=== PATIENT | female | born 1995 | race Caucasian/White ===

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

== ENCOUNTER 2017-06-28 11:38 | Emergency (ER) | payer OTHER ==
[~2017-06-28] VITALS: Ht 154.9 cm; Wt 53.1 kg
[~2017-06-28 11:38] MED LIST: ALBU18002 INH; BCPILLS PO; BENZ100C84 PO; BXN500 PO
[2017-06-28 11:40] VITALS: TEMP 36.9; Ht 154.9 cm; Wt 53.1 kg
--- NOTE | 2017-06-28 13:09 | DIAGNOSTIC IMAGING REPORT ---
CT OF THE CERVICAL SPINE CLINICAL HISTORY: Neck pain status post trauma. COMPARISON STUDY: No previous studies for comparison. CT DOSE: TECHNIQUE: CT scan of the cervical spine was performed from the skull base to the thoracic inlet. Images are reviewed in the axial, sagittal, and coronal planes. IV contrast was not administered for this examination. A dose lowering technique was utilized adhering to the principles of ALARA. FINDINGS: The visualized portions of the lung apices reveal no evidence of pneumothorax. The prevertebral soft tissues are normal. No fractures or subluxations are visualized. There is a slight reversal of the normal cervical lordosis IMPRESSION: 1. Reversal of the normal cervical lordosis possibly secondary to muscle spasm 2. No fractures or subluxations identified Electronically signed by: Varghese Trejo M.D. 06/28/2017 1:08 PM Dictated Date/Time: 06/28/2017 1:06 PM
--- NOTE | 2017-06-28 13:10 | DIAGNOSTIC IMAGING REPORT ---
HEAD WITHOUT CONTRAST (CT) CLINICAL HISTORY: 21 years-old Female presenting with head injury. TECHNIQUE: Multidetector CT imaging of the head was performed without the use of intravenous contrast. IV contrast: None. A dose lowering technique was used consistent with the principles of ALARA (as low as reasonably achievable). COMPARISON: None. CT DOSE (mGy.cm): The estimated cumulative dose is 937.97 mGy.cm. FINDINGS: Gun Stocker topogram: Unremarkable. Ventricles and sulci normal in size. Brain parenchyma normal in appearance with preserved harman-white differentiation. No mass effect or midline shift. No hemorrhage or acute territorial infarct. No extra-axial fluid collection. Paranasal sinuses and mastoid air cells clear. Calvarium intact. Minimal infiltration and swelling of the subcutaneous tissue in the frontal region. No subjacent osseous injury. IMPRESSION: 1. No acute intracranial abnormality. 2. Minimal superficial contusion in the right frontal subcutaneous tissue. No subjacent osseous injury. Electronically signed by: Alo Abbasi M.D. 06/28/2017 1:09 PM Dictated Date/Time: 06/28/2017 1:07 PM
--- NOTE | 2017-06-28 13:29 | EMERGENCY ROOM VISIT NOTE ---
ED Visit Note First contact with patient: 11:59 CHIEF COMPLAINT: Head injury HISTORY OF PRESENT ILLNESS: This 21-year-old female patient presented to the emergency department, ambulatory, approximately 9 hours after receiving a head injury while performing a [employer] march for [employer]. The patient states she was on a 12 mile march, and was running downhill at approximately mile 2. She states she tripped and fell on her face, and immediately began experiencing dizziness, nausea, lightheadedness, and disorientation. She states there was a significant amount of bleeding initially from a superficial abrasion at her hairline. There was no brief loss of consciousness. There has been no vomiting , but the patient reports significant nausea. The patient complains of head and neck pain, headache, dizziness, nausea, balance disturbances, light sensitivity , amnesia which she describes as fogginess, and disorientation. The headache has been worsening over the past several hours. The patient states she did continue the final 10 miles of the March. The patient complains of severe right -sided, midline neck pain. The patient has taken nothing for the pain. The patient rates the pain as 9/10 and throbbing. The patient denies bowel or bladder dysfunction. The patient denies any other injuries. REVIEW OF SYSTEMS: A 10 system review of systems was performed with positives and pertinent negatives listed in the history of present illness. All other systems were reviewed and are negative. ALLERGIES: Penicillin, Biaxin MEDICATIONS: OCPs PMH: None SOCIAL HISTORY: The patient is a [employer] student. She lives locally with her roommates. She denies drug, alcohol, tobacco use. PHYSICAL EXAM: Vital Signs: Reviewed Nurse's notes, vital signs stable. GENERAL : This is a 21-year-old female, in no acute distress, well-developed, well- nourished. NEURO: The patient is alert, oriented to person place and time, and coherent. Normal mini mental status exam. Negative Romberg and pronator drift. Cerebellar function intact. HEAD: Normocephalic. There is a superficial abrasion noted in the center of the forehead over the abrasion. There is a contusion underlying this abrasion. There is no active bleeding at this time. The wound is approximately 3cm x 3cm in diameter. EYES: Pupils are equal round and reactive to light and accommodation. EOMs are full and optic discs and fundi are normal. There is no swelling or discoloration of the tissue surrounding the eyes. EARS: External auditory canals clear without blood. NOSE: Patent without tenderness. No septal hematoma. FACE: No facial bone tenderness. NECK: Supple. There is cervical spine tenderness. The patient does have tenderness with movement of the neck, worse on the right side. RADIOLOGY: HEAD WITHOUT CONTRAST (CT) CLINICAL HISTORY: 21 years-old Female presenting with head injury. TECHNIQUE: Multidetector CT imaging of the head was performed without the use of intravenous contrast. IV contrast: None. A dose lowering technique was used consistent with the principles of ALARA (as low as reasonably achievable). COMPARISON: None. CT DOSE (mGy.cm): The estimated cumulative dose is 937.97 mGy.cm. FINDINGS: Notched Blade Loader topogram: Unremarkable. Ventricles and sulci normal in size. Brain parenchyma normal in appearance with preserved harman-white differentiation. No mass effect or midline shift. No hemorrhage or acute territorial infarct. No extra-axial fluid collection. Paranasal sinuses and mastoid air cells clear. Calvarium intact. Minimal infiltration and swelling of the subcutaneous tissue in the frontal region. No subjacent osseous injury. IMPRESSION: 1. No acute intracranial abnormality. 2. Minimal superficial contusion in the right frontal subcutaneous tissue. No subjacent osseous injury. Electronically signed by: Alo Abbasi M.D. 06/28/2017 1:09 PM Dictated Date/Time: 06/28/2017 1:[address] OF THE CERVICAL SPINE CLINICAL HISTORY: Neck pain status post trauma. COMPARISON STUDY: No previous studies for comparison. CT DOSE: TECHNIQUE: CT scan of the cervical spine was performed from the skull base to the thoracic inlet. Images are reviewed in the axial, sagittal, and coronal planes. IV contrast was not administered for this examination. A dose lowering technique was utilized adhering to the principles of ALARA. FINDINGS: The visualized portions of the lung apices reveal no evidence of pneumothorax. The prevertebral soft tissues are normal. No fractures or subluxations are visualized. There is a slight reversal of the normal cervical lordosis IMPRESSION: 1. Reversal of the normal cervical lordosis possibly secondary to muscle spasm 2. No fractures or subluxations identified Electronically signed by: Varghese Trejo M.D. 06/28/2017 1:08 PM Dictated Date/Time: 06/28/2017 1:06 PM ED COURSE: I examined the patient. She was sent here for [facility] for evaluation and possible imaging her head due to worsening symptoms since the injury. The patient did sustain a frontal head injury from a fall while on a rujune. She continued the 10 mile June after the fall. The patient has been having increasing balance disturbances, headache, dizziness, nausea, and light sensitivity. She does have significant tenderness of her cervical spine on palpation. CT scan of the head and neck were performed as above. There were no significant acute abnormalities noted. The patient was encouraged to follow-up with [facility] for ongoing management and return to school and [facility]. The patient was discharged home in good condition ambulatory. I attest that I have personally reviewed the patient's current medication list. Patient was found to have normal blood pressure on screening and does not require follow-up. Etiologies such as concussion, migraine, tumor, headache, sinus thrombosis, temporal arteritis, sinusitis, CVA, ICH, SAH, infection, as well as others were entertained. DIAGNOSIS: Closed head injury Current/Historical Medications Scheduled Control Pills ( Control Pills), 1 TAB PO DAILY Scheduled PRN Albuterol Sulfate (Proair Respiclick), 2 PUFFS INH Q4 PRN for Shortness of Breath Allergies Coded Allergies: Lactose Intolerance (GI) (Unverified Allergy, Unknown, GI SYMPTOMS, ) Penicillins (Verified Allergy, Unknown, unknown, 06/28/17) Clarithromycin (Unverified Adverse Reaction, Severe, N/V, 06/28/17) Vital Signs Date Time Temp Pulse Resp B/P (MAP) Pulse Ox O2 Delivery O2 Flow Rate FiO2 06/28/17 13:46 77 15 106/61 97 06/28/17 13:34 77 15 106/61 97 Room Air 06/28/17 11:40 36.9 79 20 121/69 100 Room Air Departure Information Impression Primary Impression: Closed head injury Dispostion Home / Self-Care Condition GOOD Referrals [facility] (PCP) Patient Instructions ED Head Injury Closed, My [facility] Additional Instructions You have been treated in the Emergency Department for a Closed Head Injury. CT Scan of your head/brain and neck demonstrated no acute bleeding or other abnormalities. This does not completely rule out the risk for future damage to the brain. Proper wound care is essential for adequate wound healing and infection prevention. You can shower and clean the wound with soap and water. Do not scour over the wound, pat dry with a towel. Do not submerse the wound (i.e. bathe or dish wash) until the wound has fully healed. You can use an antibiotic ointment with a dressing over the wound for the next 3-4 days. After this time you may leave the wound dry and open to the air. For pain control, you can use the following [id number] medicines (if >12 yo): Ibuprofen(Motrin, Advil) may be used for fever or pain. Use 600mg every six hours as needed. Take with food. Avoid using more than 2400mg in a 24 hour period. Do not use 2400mg per day for more than three consecutive days without physician direction. Prolonged inappropriate use can lead to stomach upset or ulcers. (AND/OR) Acetaminophen(Tylenol) may be used for fever or pain. Use 1000mg every six hours as needed. Avoid using more than 3000mg in a 24 hour period. You should relax in a quiet, dark place for the rest of the day. Avoid any possible triggers including: cigarette smoke, caffeine, nicotine, chocolate, wine, beer, loud noises or music, or bright lights. You should schedule a follow-up appointment in 2-3 days with your Primary Care Provider/[facility] or established Neurologist for further evaluation and treatment of your Headache. You should NOT return to athletic play until reevaluated by your Customer Relationship Specialist. You should fully comply with their standard protocol regarding head injuries. Your Customer Relationship Specialist OR Primary Care Provider will have the final say in your return to athletic play. This timeframe should be AT LEAST 1 week AFTER the date of last symptoms experienced! This is ESSENTIAL to allow for adequate brain healing time and for reduced risk of re-injury. Return to the Emergency Department if your current symptoms worsen despite treatment course outlined above, or if you develop any of the following symptoms : intractable pain despite aforementioned treatment course, visual disturbances , loss of vision, unilateral weakness or facial drooping, slurring of speech, loss of coordination, or loss of consciousness. Problem Qualifiers Primary Impression: Closed head injury Encounter type: initial encounter Qualified Codes: S09.90XA - Unspecified injury of head, initial encounter
[2017-06-28 13:46] VITALS: BP 106/61; PULSE 77; O2SAT 97
== END 2017-06-28 13:47 | disposition home or self-care (01) ==
LOC: C.EDB 11:39 → C.EDD 13:47
DX: S09.90XA Unspecified injury of head, initial encounter (principal); S00.81XA Abrasion of other part of head, initial encounter; R42 Dizziness and giddiness; W19.XXXA Unspecified fall, initial encounter